=== PATIENT | male | born 1995 | race Caucasian/White ===

== ENCOUNTER 2017-05-24 20:47 | Emergency (ER) | payer SELFPAY ==
[2017-05-24 20:49] VITALS: BP 130/82; PULSE 83; RESP 16; TEMP 98.7; O2SAT 97
--- NOTE | 2017-05-24 21:02 | PD ---
Physical Exam Date Seen by Provider: May 24, 2017 Time Seen by Provider: 20:56 Narrative 22 yo male here for right sided chest pain. Started after he woke up. Getting worst. No injury or fall. pain is 8/10. Gets worst with deep breaths. No history of this. Vitals are stable in triage. Awaiting Bed placement. Data Data Last Documented VS Vital Signs Date Time Temp Pulse Resp B/P Pulse Ox O2 Delivery O2 Flow Rate FiO2 05/24/17 20:49 98.7 83 16 130/82 97 Room Air [facility] Medical Record Reviewed: Yes Supervised Visit with LITZY: No Nathanael Judge May 24, 2017 21:02
--- NOTE | 2017-05-24 21:13 | PD ---
HPI Chief Complaint: Pain: Acute or Chronic Time Seen by Provider: 21:10 Travel History International Travel<30 days: No Contact w/Intl Traveler<30days: No Traveled to known affect area: No History of Present Illness HPI 22-year-old white male presents to emergency Department with complaints of right posterior shoulder and right sided chest wall pain. He states that this started 2 days ago. He had no injury. The pain has progressively gotten worse. He states that he had a: No work today. The pain is worse when he bends and moves or raises his arm. He denies any recent illness or trauma. Pain is moderate to moderately severe. No alleviating factors. The patient cannot recall any exacerbating event. Patient denies any shortness of breath, wheezing, nausea, vomiting. No neck or back pain. PFSH Past Medical History Medical History: Denies Significant Hx Tetanus Vaccination: < 5 Years Past Surgical History Surgical History: No Previous Surgery Social History Alcohol Use: Yes Tobacco Use: Yes (1 pk a day) Allergies-Medications (Allergen,Severity, Reaction): Coded Allergies: No Known Allergies (Unverified , 05/24/17) Reported Meds & Prescriptions Reported Meds & Active Scripts Active Flexeril (Cyclobenzaprine HCl) 10 Mg Tab 10 Mg PO TID Diclofenac Sodium DR (Diclofenac Sodium) 75 Mg Tabdr 75 Mg PO BID Review of Systems Except as stated in HPI: all other systems reviewed are Neg Physical Exam Narrative GENERAL: Well-developed, well-nourished in no apparent distress. Nontoxic appearing. HEAD: Normocephalic, atraumatic. EYES: Pupils equal round and reactive. Extraocular motions intact. No scleral icterus. No injection or drainage. ENT: Nose clear. Throat without erythema, tonsillar hypertrophy or exudate. Uvula midline. Airway patent. NECK: Trachea midline. Supple, nontender, moves head freely. No central bony tenderness or spasm. CARDIOVASCULAR: Regular rate and rhythm without murmurs, gallops, or rubs. RESPIRATORY: Clear to auscultation. Breath sounds equal bilaterally. No wheezes , rales, or rhonchi. GASTROINTESTINAL: Abdomen soft, non-tender, nondistended. No hepato-splenomegaly , or palpable masses. No guarding. EXTREMITIES: No clubbing, cyanosis, or edema. No joint tenderness. Examination the right upper extremity reveals no pain in the hand, wrist, elbow, shoulder. He has full range of motion but does have referred pain to the periscapular muscles. BACK: No central bony tenderness to palpation of the dorsal lumbar spine. Patient has tenderness to the right periscapular and trapezius muscles around the right chest. Without deformity. No flank tenderness. NEUROLOGICAL: Awake, alert and oriented x 3 .Cranial nerves grossly intact. Motor and sensory grossly within normal limits. Normal speech. Data Data Last Documented VS Vital Signs Date Time Temp Pulse Resp B/P Pulse Ox O2 Delivery O2 Flow Rate FiO2 05/24/17 20:49 98.7 83 16 130/82 97 Room Air Orders Chest, Pa & Lat (05/24/17 21:07) [facility] Medical Decision Making Medical Screen Exam Complete: Yes Emergency Medical Condition: Yes Medical Record Reviewed: Yes Interpretation(s) Chest x-ray: Negative for acute pulmonary process. No obvious bony abnormality. Differential Diagnosis Differential diagnoses: Sprain, strain, spasm, pneumothorax Narrative Course Patient's given Naprosyn 500 and Flexeril 10 mg by mouth. Patient looks nontoxic. His vital signs are stable. He moves freely in examination room. X- ray the chest is negative. This is myofascial pain Diagnosis Primary Impression: Acute myofascial pain Patient Instructions: General Instructions Additional Instructions: Rest. Ice for the next 3 days followed by heat . Flexeril and Voltaren. Follow-up with a primary care doctor in one week. Return to the ER for emergencies. Med/Other Pt SpecificInfo: Prescription(s) given Scripts Cyclobenzaprine (Flexeril)10 Mg Tab10 Mg PO TID #21 TAB Prov:Trell Lott MD 05/24/[address] 75 Mg Tabdr75 Mg PO BID #20 TAB Prov:Trell Lott MD 05/24/17 Disposition: 01 DISCHARGE HOME Condition: Stable Timothy Dinh May 24, 2017 21:13
[2017-05-24] MEDS ORDERED: DICL75TA PO (21:26)
[2017-05-24] MEDS ORDERED: CYCL1TAB29 PO (21:26)
--- NOTE | 2017-05-24 21:28 | RADRPT ---
EXAM DATE/TIME: 05/24/2017 21:17 [facility] COMPARISON: No previous studies available for comparison. INDICATIONS : Right sided chest and shoulder pain for 3 days MEDICAL HISTORY : None. SURGICAL HISTORY : None. ENCOUNTER: Initial ACUITY: 3 days PAIN SCORE: 8/10 LOCATION: Right chest FINDINGS: PA and lateral views of the chest demonstrate the lungs to be symmetrically aerated without evidence of mass, infiltrate or effusion. The cardiomediastinal contours are unremarkable. Osseous structure s are intact. CONCLUSION: No acute disease. Timothy Vogel MD on May 24, 2017 at 21:26 Board Certified Radiologist. This report was verified electronically.
[2017-05-24] MEDS ORDERED: NAPROXEN 500 MG TAB PO ONE (21:30)
[2017-05-24] MEDS ORDERED: CYCLOBENZAPRINE HCL 10 MG TAB PO ONE (21:30)
== END 2017-05-24 22:03 | disposition home or self-care (01) ==
LOC: NEPK 20:47
DX: M79.1 Myalgia (principal)
CPT/HCPCS: 71020; 99284